=== PATIENT | female | born 1990 | race Caucasian/White ===

== ENCOUNTER 2017-09-09 19:48 | Outpatient (CLI) | payer OTHER ==
[2017-09-09] MEDS: LACTATED RINGER'S 1,000 ML IV (21:42)
[2017-09-09 21:48] LABS: ADD MAN DIFF? NO
[2017-09-09 21:50] LABS: BASOPHIL # 0.1 10^3/ul (0.0-0.1); BASOPHILS % 0.4 % (0.0-2.0); EOSINOPHILS # 0.2 10^3/ul (0.0-0.5); EOSINOPHILS % 1.7 % (0.0-7.0); HEMATOCRIT 29.9 % (37.0-47.0); HEMOGLOBIN 10.3 g/dl (12.0-16.0); LYMPHOCYTES # 3.8 10^3/ul (0.8-2.9); LYMPHOCYTES % 27.7 % (15.0-51.0); MEAN CORPUSCULAR HEMOGLOBIN 35.3 pg (29.0-33.0); MEAN CORPUSCULAR HGB CONC 34.4 g/dl (32.0-37.0); MEAN CORPUSCULAR VOLUME 102.4 fl (82.0-101.0); MEAN PLATELET VOLUME 9.6 fl (7.4-10.4); MONOCYTE # 0.9 10^3/ul (0.3-0.9); MONOCYTES % 6.5 % (0.0-11.0); NEUTROPHIL # 8.6 10^3/ul (1.6-7.5); NEUTROPHILS % 63.1 % (39.0-77.0); PLATELET COUNT 300 10^3/UL (140-415); RED BLOOD COUNT 2.92 10^6/ul (4.20-5.40); RED CELL DISTRIBUTION WIDTH 13.1 % (11.5-14.5)
[2017-09-09 21:50] LABS: WHITE BLOOD COUNT 13.6 10^3/ul (4.8-10.8)
[2017-09-09 21:54] LABS: ADD UMIC NO; UR ASCORBIC ACID NEGATIVE (NEGATIVE); UR BILIRUBIN (Dip) NEGATIVE (NEGATIVE); UR BLOOD (Dip) NEGATIVE (NEGATIVE); UR CLARITY CLEAR (CLEAR); UR COLOR COLORLESS (YELLOW); UR GLUCOSE (Dip) NEGATIVE (NEGATIVE); UR KETONES (Dip) NEGATIVE (NEGATIVE); UR LEUKOCYTE ESTERASE (Dip) NEGATIVE Leu/ul (NEGATIVE); UR NITRITE (Dip) NEGATIVE (NEGATIVE); UR SPECIFIC GRAVITY (Dip) 1.002 (1.003-1.030); UR TOTAL PROTEIN (Dip) NEGATIVE (NEGATIVE); UR UROBILINOGEN (Dip) NEGATIVE (NEGATIVE)
[2017-09-09 22:00] LABS: HEMOGLOBIN A1C 4.5 % (0-5.9)
[2017-09-09 22:07] LABS: INR 0.93; PARTIAL THROMBOPLASTIN TIME 29.7 Sec (25.0-35.0); PROTIME 12.5 Sec (12.2-14.2)
[2017-09-09] MEDS: NIFEdipine 10 MG CAP PO (22:08)
[2017-09-09 23:06] LABS: ALANINE AMINOTRANSFERASE 32 IU/L (13-69); ALBUMIN 3.2 g/dl (3.3-4.9); ALKALINE PHOSPHATASE 78 IU/L (42-121); ANION GAP 14 (8-16); ASPARTATE AMINO TRANSFERASE 15 IU/L (15-46); BLOOD UREA NITROGEN 5 mg/dl (7-20); CALCIUM 9.2 mg/dl (8.4-10.2); CARBON DIOXIDE 23 mmol/L (21-31); CHLORIDE 104 mmol/L (97-110); CREATININE 0.54 mg/dl (0.44-1.00); GLUCOSE 76 mg/dl (70-220); POTASSIUM 3.9 mmol/L (3.5-5.1); SODIUM 137 mmol/L (135-144); TOTAL PROTEIN 6.1 g/dl (6.1-8.1); URIC ACID 3.7 mg/dl (3.1-7.9)
[2017-09-10] MEDS ORDERED: ACETAMINOPHEN 1000MG/100ML IV 100 ML IVPB (00:30)
[2017-09-11] MEDS ORDERED: LACTATED RINGER'S 1,000 ML IV (20:49)
== END 2017-09-10 03:00 | disposition home or self-care (01) ==
LOC: OBT 19:48 → L-D 19:51
DX: O26.892 Other specified pregnancy related conditions, second trimester (principal); Z3A.24 24 weeks gestation of pregnancy; R10.2 Pelvic and perineal pain; M54.5 Low back pain; Z88.0 Allergy status to penicillin
CPT/HCPCS: 36415; 76815; 80053; 81003; 83036; 84560; 85025; 85384; 85610; 85730; 96360; 96361